=== PATIENT | male | born 1985 | race Caucasian/White ===

== ENCOUNTER 2017-05-16 15:17 | Emergency (ER) | payer OTHER ==
[~2017-05-16] VITALS: Ht 180.3 cm; Wt 85.0 kg
[2017-05-16 15:20] VITALS: BP 126/82; PULSE 79; RESP 16; O2SAT 97
--- NOTE | 2017-05-16 15:29 | ED.REPORT ---
HPI-Chest Pain 40 and Over Date of Service May 16, 2017 ED Provider: Binh Whipple MD The pt is a 31 y/o male with no pertinent hx who presents to the ED complaining of pulsing substernal chest pain, onset a couple of weeks ago. His pain suddenly worsened last night and he immediately lost consciousness. His girlfriend woke him up. He felt better after eating and resting for a few minutes. Today, the pulsing pain has returned. He is also experiencing right arm pain that radiates to the right side of his back and shortness of breath. He denies pain with deep breathing and chest pain with palpation. He denies any other sx including fever and cough. Nursing Notes Stated Complaint: SOB,CHEST PAIN,RT ARM PAIN Chief Complaint: Chest Pain Nursing Notes Reviewed: Yes Allergies: Coded Allergies: Penicillins (Verified Allergy, Severe, Anaphylaxis, 05/16/17) all cillins General Time Seen by MD: 16:13 Chief Complaint Chest pain Hx Obtained From: Patient Arrived By: Walk-in Sudden in Onset?: Yes Onset Occurred: Yesterday Symptom Duration: Since onset Location: : Substernal Radiation: : Does not radiate Severity: Current: Mild Severity: Maximum: Severe Past Medical History Past Medical History none reported Past Surgical History none reported Smoking History Never Smoker Social History Drug Use: THC Ambulatory Status Independent Review of Systems Constitutional: Denies: Fever Respiratory: Reports: Shortness of breath, Denies: Non-productive cough Cardiovascular: Reports: Chest pain Musculoskeletal: Reports: Back pain (right sided), Extremity pain (right arm) Neurologic: Reports: Change LOC Complete sys rev & neg: except as marked. Physical Exam Initial Vital Signs Vital Signs (First) Date Time Temp Pulse Resp B/P Pulse Ox O2 Delivery O2 Flow Rate FiO2 05/16/17 15:20 37 79 16 126/82 97 Room Air Initial VS: Reviewed Head / Eyes: Atraumatic, Normocephalic Neck: Supple, Non-tender, Full range of motion Extremities: Vascular intact, Neuro intact, No swelling, No tenderness Skin: Warm, Dry, No cyanosis Neurologic: Alert, Oriented, Nonfocal General/Constitutional: Awake, Alert, No acute distress, Well appearing, Cooperative Respiratory / Chest: Atraumatic, Breath sounds NL, Breath sounds = bilat, No respiratory distress, No rales, No rhonchi, No wheezing Cardiovascular: Heart rate NL, Regular rhythm, Heart sounds NL, No gallop, No murmurs, No rubs Abdomen: Atraumatic, Soft, Non-tender, No guarding, No rebound Interpretation & Diagnostics Lab Results Interpretation Result Diagram: 05/16/17 1600 05/16/17 1600 Test 05/16/17 16:00 White Blood Count 11.3th/mm3 (3.8-10.1) Red Blood Count 4.97mil/mm3 (4.40-5.80) Hemoglobin 14.4g/dL (13.8-17.2) Hematocrit 40.7% (41.0-50.0) Mean Corpuscular Volume 81.9fL (81-100) Mean Corpuscular Hemoglobin 29.0pg (27.0-35.0) Mean Corpuscular Hemoglobin Concent 35.4% (32.0-37.0) Red Cell Distribution Width 12.7% (12.3-15.4) Platelet Count 239bil/L (150-400) Neutrophils (%) (Auto) 66.4% (40-74) Lymphocytes (%) (Auto) 23.2% (14-46) Monocytes (%) (Auto) 8.5% (4-12) Eosinophils (%) (Auto) 1.2% (0-5) Basophils (%) (Auto) 0.5% (0-3) Sodium Level 138mEq/L (134-144) Potassium Level 3.6mEq/L (3.5-5.2) Chloride Level 101mEq/L (97-108) Carbon Dioxide Level 20mmol/L (18-29) Blood Urea Nitrogen 8mg/dL (6-20) Creatinine 0.82mg/dL (0.76-1.27) Estimat Glomerular Filtration Rate 118mL/min (>59) Glucose Level 88mg/dL (60-99) Calcium Level 9.3mg/dL (8.5-10.1) Magnesium Level 1.9mg/dL (1.6-2.6) Total Bilirubin 1.1mg/dL (0.0-1.2) Aspartate Amino Transf (AST/SGOT) 24U/L (0-50) Alanine Aminotransferase (ALT/SGPT) 17U/L (0-44) Alkaline Phosphatase 56U/L (25-150) Troponin T < 0.010ug/L (0.0-0.011) Total Protein 7.4g/dL (6.4-8.4) Albumin 4.4g/dL (3.4-5.0) ECG Interpretation ECG Interpretation: Normal sinus rhythm. Rate 84. Time: 15:36 Interpreted by: ED physician X-Ray Chest Interpretation Chest Xray Interpretation: IMPRESSION: 1. No acute cardiopulmonary disease. Dictated by: Gianfranco Torre M.D. on 05/16/2017 at 15:58 Approved by: Gianfranco Torre M.D. on 05/16/2017 at 16:00 Interpretation / Wet Read by: Interpret - Radiologist CT Chest Interpretation IMPRESSION: 1. No evidence of pulmonary embolism. Dictated by: Gianfranco Torre M.D. on 05/16/2017 at 17:25 Approved by: Gianfranco Torre M.D. on 05/16/2017 at 17:27 Study type: CT pulm angiogram Interpretation / Wet Read by: Interpret - Radiologist Re-Eval/Medical Decision Med Decision/Clinical Course I spoke with Dr. Iyer at 6 PM regarding the symptoms and the quandary that I am in given the lack of a definitive diagnosis. She offered to see him in her clinic tomorrow in [place] at 10 AM. She says that someone from her office will contact him and arrange for close follow-up. I do not believe that further evaluation necessary in the emergency department at this moment given the normal workup to this point. Time of Eval: 14:30 Re-Evaluation/Progress Note: Discussed X-ray and plan to do a CT. The pt understands and agrees with the plan. All questions answered. Counseled Regarding: Diagnosis Discharge & Departure Primary Impression: Chest pain Additional Impression: Syncope Patient Instructions: Chest Pain (ED), Syncope (ED) Additional Instructions: No dangerous cause for the chest pain or fainting event was discovered here in the emergency department. However, I believe that further evaluation is necessary. Please follow-up with Dr. Iyer tomorrow at the [facility] location: [address] [place] [address] you should expect a phone call first thing tomorrow morning regarding the specifics of the appointment time. Referrals: Claudine Iyer MD Scribe Attestation Portions of this note were transcribed by Junaid Espinoza. I,, personally performed the history,physical exam and medical decision-making;I reviewed and confirmed the accuracy of the information in the transcribed note. Signed by Giovanna Wright. 05/16/17 Binh Whipple MD May 16, 2017 15:29 Junaid Espinoza May 16, 2017 16:22
--- NOTE | 2017-05-16 16:02 | DRSVH ---
PROCEDURE: X-RAY CHEST, TWO VIEWS ([id number]) INDICATIONS: chest pain , shortness of breath TECHNIQUE: 2 views of the chest were acquired. COMPARISON: None. FINDINGS: Surgical changes and devices: None. Lungs and pleura: No pleural effusions or pneumothorax. The lungs are clear. Mediastinum: Mediastinal contours are normal. Heart size is normal. Bones and chest wall: No suspicious bony abnormalities. Soft tissues appear unremarkable. IMPRESSION: 1. No acute cardiopulmonary disease. Dictated by: Gianfranco Torre M.D. on 05/16/2017 at 15:58 Approved by: Gianfranco Torre M.D. on 05/16/2017 at 16:00
[2017-05-16 16:05] VITALS: BP 118/65; PULSE 84; RESP 20; O2SAT 96
[2017-05-16 16:15] LABS: BASOPHILS % (AUTO) 0.5 % (0-3); EOSINOPHILS % (AUTO) 1.2 % (0-5); MONOCYTES % (AUTO) 8.5 % (4-12); Mean Corpuscular Volume 81.9 fL (81-100); NEUTROPHILS % (AUTO) 66.4 % (40-74); Platelet Count 239 bil/L (150-400)
[2017-05-16 16:42] LABS: TROPONIN T < 0.010 ug/L (0.0-0.011)
[2017-05-16 16:50] LABS: Magnesium 1.9 mg/dL (1.6-2.6)
--- NOTE | 2017-05-16 17:28 | DRSVH ---
PROCEDURE: CT ANGIO CHEST PULMONARY EMBOLISM ([id number]) INDICATIONS: chest pain and syncope TECHNIQUE: After the administration of intravenous contrast, 2 mm thick sections acquired from the pulmonary api foreign to the posterior costophrenic angles. 3-dimensional maximum intensity projection (MIP) coronal a nd sagittal reformats were then acquired through the thorax. For radiation dose reduction, the follo wing was used: automated exposure control, adjustment of mA and/or kV according to patient size. COMPARISON: None. FINDINGS: Image quality: Excellent. Pulmonary arteries: Pulmonary arteries are normal in size, and demonstrate no intraluminal filling d efects to suggest central pulmonary embolism. Lungs and pleura: There is mild dependent atelectasis bilaterally. No focal consolidation. No pleur al effusions or pneumothorax. Central and peripheral airways are patent. Mediastinum: Heart size is normal, without pericardial effusion. No mediastinal or hilar adenopathy . Thoracic aorta is normal in caliber and enhancement. Esophagus is normal in caliber, without hiat al hernia. Bones and chest wall: No suspicious bony lesions. Ribs and thoracic spine appear intact throughout. Thyroid gland demonstrates no discrete nodules. No axillary or supraclavicular adenopathy. Abdomen: Visualized upper abdominal solid organs appear normal in the early arterial phase of enhanc ement. IMPRESSION: 1. No evidence of pulmonary embolism. Dictated by: Gianfranco Torre M.D. on 05/16/2017 at 17:25 Approved by: Gianfranco Torre M.D. on 05/16/2017 at 17:27
[2017-05-16 18:22] VITALS: BP 118/65; PULSE 84; RESP 20; O2SAT 96
== END 2017-05-16 18:23 ==
LOC: SED 15:17
DX: R07.2 Precordial pain (principal); R55 Syncope and collapse; M79.601 Pain in right arm; Z88.0 Allergy status to penicillin
CPT/HCPCS: 36415; 71020; 71275; 80053; 82948; 83735; 84484; 85025; 93005; 96360; 99285; Q9967